=== PATIENT | male | born 1955 | race Caucasian/White ===

== ENCOUNTER 2022-03-24 13:24 | Inpatient (IN) ==
[2022-03-24] MEDS ORDERED: ULTRAM PO PRN (17:14)
[2022-03-24 17:30] VITALS: BMI 33.0
[2022-03-24] MEDS ORDERED: LR 1,000 ML IV 1,000 ML IV ONE (17:45)
[2022-03-24] MEDS: LR 1,000 ML IV 1,000 ML IV SCH (17:47)
[2022-03-24] MEDS: ZOSYN VIAL 3.375 GRAMS 3.375 G in NS 100 ML IV 100 ML IV SCH ×2 (17:51→21:01)
[2022-03-24] MEDS ORDERED: NS 250 ML IV 250 ML IV PRN (19:58)
[2022-03-24] MEDS ORDERED: NS 250 ML IV 250 ML IV ONE (19:59)
[2022-03-24] MEDS: ZOCOR TAB 20 MG PO SCH (21:00)
[2022-03-24] MEDS: REQUIP PO SCH (21:00)
[2022-03-25] MEDS: ZOSYN VIAL 3.375 GRAMS 3.375 G in NS 100 ML IV 100 ML IV SCH ×3 (05:10→21:05)
[2022-03-25] MEDS: LR 1,000 ML IV 1,000 ML IV SCH ×3 (06:02→21:05)
[2022-03-25 06:18] LABS: BASOPHILS # (AUTO) 0.1 X10^3/uL (0.0-0.1); BASOPHILS % (AUTO) 1.1 % (0.2-1.0); EOSINOPHILS # (AUTO) 0.7 x10^3/uL (0.0-0.2); EOSINOPHILS % (AUTO) 8.5 % (0.9-2.9); HEMATOCRIT 36.9 % (42.0-54.0); HEMOGLOBIN 12.9 g/dL (13.5-18.0); LYMPHOCYTES # (AUTO) 1.7 X10^3/uL (1.3-2.9); LYMPHOCYTES % (AUTO) 21.6 % (21.0-51.0); MEAN CORPUSCULAR HEMOGLOBIN 30.7 pg (27.0-34.0); MEAN CORPUSCULAR VOLUME 87.8 fL (80.0-100.0); MEAN PLATELET VOLUME 7.3 fL (7.4-11.0); MONOCYTES # (AUTO) 0.7 x10^3/uL (0.3-0.8); NEUTROPHILS # (AUTO) 4.6 x10^3/uL (2.2-4.8); NEUTROPHILS % (AUTO) 59.8 % (42.0-75.0); RED CELL DISTRIBUTION WIDTH 13.1 % (11.6-16.5); WHITE BLOOD COUNT 7.7 X10^3/uL (3.6-10.0)
[2022-03-25 06:26] LABS: ALANINE AMINOTRANSFERASE 25 Units/L (12-78); ALBUMIN 2.9 g/dL (3.4-5.0); ALKALINE PHOSPHATASE 80 Units/L (46-116); ASPARTATE AMINO TRANSFERASE 15 Units/L (15-37); BLOOD UREA NITROGEN 13 mg/dL (7-18); CARBON DIOXIDE 32.9 mmol/L (21-32); CHLORIDE 103 mmol/L (98-107); COR CA(FOR HYPOALB) 9.9 mg/dL (8.5-10.1); CREATININE 0.75 mg/dL (0.70-1.30); SODIUM 141 mmol/L (136-145); TOTAL PROTEIN 6.8 g/dL (6.4-8.2); eGFR NON BLACK RACES > 60 (>60)
--- NOTE | 2022-03-25 07:54 | VAS ---
HISTORYLeft lower extremity cellulitisSTUDYBilateral lower extremity venous Doppler evaluationTechnique: Multiple grayscale sonographic images were obtained. Color duplex Doppler evaluation was performed.COMPARISONNoneFINDINGSBilatera lly the common femoral vein, superficial femoral vein, popliteal vein, and posterior tibial veins are patent demonstrating normal flow, compression, and distal augmentation.IMPRESSIONExam negative for deep venous thrombosis bilateral lower extremitiesElectronically signed by: BOYD CALDERON (Mar 25, 2022 07:52:51)
[2022-03-25] MEDS: CYMBALTA PO SCH (08:57)
[2022-03-25] MEDS: ACCUPRIL PO SCH (08:57)
[2022-03-25] MEDS: ASPIRIN EC 81 MG PO SCH (08:57)
[2022-03-25] MEDS: LOVENOX INJ 40 MG SYR SC SCH (08:57)
[2022-03-25] MEDS: HYDROCHLOROTHIAZIDE 25 MG TAB PO SCH (08:57)
[2022-03-25] MEDS: FLOMAX PO SCH (08:57)
[2022-03-25] MEDS: PROTONIX TAB 40 MG PO SCH (08:58)
[2022-03-25] MEDS: REQUIP PO SCH ×2 (08:58→20:40)
--- NOTE | 2022-03-25 15:50 | NOTE.SOAP ---
Soap Note Note for Day of Date of Exam: 03/25/22 Subjective Data Subjective Data: HD # 1 . On IV antibiotics and the Venous u/s showed no evidence of DVT either LE. Objective Data Temperature: 98.1 F Pulse Rate: 76 Respiratory Rate: 20 Blood Pressure: 147/70 O2 Sat by Pulse Oximetry: 95 Objective Data: Less swelling and redness left leg . Both legs with chronic changes of venous insuficiency. Clinically has LE iliac vein compression bilterally. Assessment Assessment: Cellulitis left LE, bilateral LE iliac vein compression Plan Plan: IV antibiotics, Elevate left leg, Iliac venograms possible left iliac vein stenting next Tuesday
[2022-03-25] MEDS: ZOCOR TAB 20 MG PO SCH (20:40)
[2022-03-26] MEDS: ZOSYN VIAL 3.375 GRAMS 3.375 G in NS 100 ML IV 100 ML IV SCH ×3 (05:00→21:00)
[2022-03-26] MEDS: CYMBALTA PO SCH (08:42)
[2022-03-26] MEDS: FLOMAX PO SCH (08:42)
[2022-03-26] MEDS: ASPIRIN EC 81 MG PO SCH (08:42)
[2022-03-26] MEDS: HYDROCHLOROTHIAZIDE 25 MG TAB PO SCH (08:42)
[2022-03-26] MEDS: ACCUPRIL PO SCH (08:42)
[2022-03-26] MEDS: PROTONIX TAB 40 MG PO SCH (08:42)
[2022-03-26] MEDS: LOVENOX INJ 40 MG SYR SC SCH (08:43)
[2022-03-26] MEDS: REQUIP PO SCH ×2 (08:45→20:45)
[2022-03-26] MEDS: LR 1,000 ML IV 1,000 ML IV SCH ×2 (08:48→21:00)
[2022-03-26] MEDS: ZOCOR TAB 20 MG PO SCH (20:46)
--- NOTE | 2022-03-26 23:57 | NOTE.SOAP ---
Soap Note Note for Day of Date of Exam: 03/26/22 Subjective Data Subjective Data: HD # 2 , Treatment of cellulitis left leg, possible iliac vein compression. Objective Data Temperature: 98.1 F Pulse Rate: 63 Respiratory Rate: 20 Blood Pressure: 129/65 O2 Sat by Pulse Oximetry: 96 Objective Data: Less swelling and redness of the left leg Assessment Assessment: cellulits improving left leg Plan Plan: Continue IV antibiotics and elevation of left leg. Plan venograms and iliac vein IVUS on Tuesday.
[2022-03-27] MEDS: ZOSYN VIAL 3.375 GRAMS 3.375 G in NS 100 ML IV 100 ML IV SCH ×3 (05:05→21:00)
[2022-03-27] MEDS: LR 1,000 ML IV 1,000 ML IV SCH ×2 (05:08→12:02)
[2022-03-27] MEDS: REQUIP PO SCH ×2 (08:25→21:00)
[2022-03-27] MEDS: ACCUPRIL PO SCH (08:26)
[2022-03-27] MEDS: HYDROCHLOROTHIAZIDE 25 MG TAB PO SCH (08:26)
[2022-03-27] MEDS: FLOMAX PO SCH (08:26)
[2022-03-27] MEDS: ASPIRIN EC 81 MG PO SCH (08:26)
[2022-03-27] MEDS: CYMBALTA PO SCH (08:26)
[2022-03-27] MEDS: PROTONIX TAB 40 MG PO SCH (08:26)
[2022-03-27] MEDS: LOVENOX INJ 40 MG SYR SC SCH (09:38)
--- NOTE | 2022-03-27 16:38 | NOTE.SOAP ---
Soap Note Note for Day of Date of Exam: 03/27/22 Subjective Data Subjective Data: Continue to improve Objective Data Temperature: 98.6 F Pulse Rate: 64 Respiratory Rate: 20 Blood Pressure: 119/56 Objective Data: Less swelling and redness of the left leg . Both legs with stigmata of deep giancarlo ous insufficiency and /or bilateral iliac vein compression. Assessment Assessment: Cellulitis , venous insufficiency left leg improved Plan Plan: Continue elevation and IV antibiotics and plan venography , IVUS and possible stenting of left iliac vein on Tuesday03/29/2022.
[2022-03-27] MEDS: ZOCOR TAB 20 MG PO SCH (21:00)
[2022-03-28] MEDS: LR 1,000 ML IV 1,000 ML IV SCH ×3 (02:36→18:29)
[2022-03-28] MEDS: ZOSYN VIAL 3.375 GRAMS 3.375 G in NS 100 ML IV 100 ML IV SCH ×3 (06:00→21:07)
[2022-03-28] MEDS: PROTONIX TAB 40 MG PO SCH (10:08)
[2022-03-28] MEDS: ASPIRIN EC 81 MG PO SCH (10:08)
[2022-03-28] MEDS: HYDROCHLOROTHIAZIDE 25 MG TAB PO SCH (10:08)
[2022-03-28] MEDS: CYMBALTA PO SCH (10:09)
[2022-03-28] MEDS: ACCUPRIL PO SCH (10:09)
[2022-03-28] MEDS: FLOMAX PO SCH (10:10)
[2022-03-28] MEDS: REQUIP PO SCH ×2 (10:12→21:04)
[2022-03-28] MEDS: LOVENOX INJ 40 MG SYR SC SCH (10:13)
[2022-03-28] MEDS ORDERED: NS 100 ML IV 100 ML ONE (21:03)
[2022-03-28] MEDS: ZOCOR TAB 20 MG PO SCH (21:06)
[2022-03-28] MEDS ORDERED: ZOSYN VIAL 3.375 GRAMS IV ONE (21:09)
--- NOTE | 2022-03-28 23:23 | NOTE.SOAP ---
Soap Note Note for Day of Date of Exam: 03/28/22 Subjective Data Subjective Data: Continues to improve. Left leg swelling nearly resolved and left leg back to baseline of right leg. Both legs have evidence of iliac vein compression / venous insufficiency. Objective Data Temperature: 97.8 F Pulse Rate: 70 Respiratory Rate: 20 Blood Pressure: 139/73 O2 Sat by Pulse Oximetry: 95 Objective Data: As above Assessment Assessment: Cellulitis nearly resolved with IV antibiotics. Probable iliac vein compression. Plan Plan: NPO after midnight. Will plan bilateral iliac vein venograms and bilateral iliac vein IVUS and possible stenting of left iliac vein.
[2022-03-29] MEDS: LR 1,000 ML IV 1,000 ML IV SCH ×2 (03:03→06:44)
[2022-03-29] MEDS: ZOSYN VIAL 3.375 GRAMS 3.375 G in NS 100 ML IV 100 ML IV SCH ×2 (05:58→14:12)
[2022-03-29] MEDS: ASPIRIN EC 81 MG PO SCH (10:00)
[2022-03-29] MEDS: CYMBALTA PO SCH (10:01)
[2022-03-29] MEDS: FLOMAX PO SCH (10:01)
[2022-03-29] MEDS: PROTONIX TAB 40 MG PO SCH (10:01)
[2022-03-29] MEDS: LOVENOX INJ 40 MG SYR SC SCH (10:01)
[2022-03-29] MEDS: REQUIP PO SCH (10:01)
[2022-03-29] MEDS: HYDROCHLOROTHIAZIDE 25 MG TAB PO SCH (10:09)
[2022-03-29] MEDS: ACCUPRIL PO SCH (10:09)
--- NOTE | 2022-03-29 10:27 | RAD ---
HISTORYPreop vascular surgerySTUDYChest AP portableCOMPARISONNoneFINDINGSHeart size is normal. Sissy are normal. Lungs are hypoinflated but free of acute infiltrates. No pleural effusions are identified. Bony thorax is unremarkable.IMPRESSIONLungs hypoinflated but clearElectronically signed by: BOYD CALDERON (Mar 29, 2022 10:25:54)
[2022-03-29] MEDS ORDERED: LR 1,000 ML IV 1,000 ML IV ONE (11:55)
[2022-03-29] MEDS ORDERED: DIPRIVAN VIAL 20 ML ONE (11:57)
[2022-03-29] MEDS ORDERED: ANCEF VIAL 1 GRAM ONE (11:58)
[2022-03-29] MEDS ORDERED: NS 100 ML IV 100 ML ONE (11:58)
[2022-03-29] MEDS ORDERED: VERSED ONE (12:01)
[2022-03-29] MEDS ORDERED: FENTANYL VIAL INJ 100 mcg ONE (12:02)
[2022-03-29] MEDS ORDERED: MARCAINE 0.5% ONE (12:26)
[2022-03-29] MEDS ORDERED: HEPARIN SODIUM IN D5W 75,000 UNITS/1,500 ML BAG ONE (12:26)
[2022-03-29] MEDS ORDERED: KETAMINE HCL ONE (12:34)
[2022-03-29] MEDS ORDERED: XYLOCAINE 2 % (PLAIN) ONE (12:34)
[2022-03-29] MEDS ORDERED: PEPCID 20 MG VIAL ONE (12:36)
[2022-03-29] MEDS ORDERED: ZOFRAN INJ 4 MG VIAL ONE (12:36)
[2022-03-29] MEDS ORDERED: OFIRMEV IV 1000 MG VIAL 1,000 MG/100 ML VIAL IV ONE (12:49)
[2022-03-29] MEDS ORDERED: PROTAMINE SULFATE 50 MG VIAL ONE (12:57)
[2022-03-29] MEDS ORDERED: HEPARIN SODIUM INJ 5000 UNITS ONE (12:57)
[2022-03-29] MEDS ORDERED: TORADOL 30 MG VIAL ONE (13:04)
[2022-03-29 20:01] VITALS: BP 147/63
--- NOTE | 2022-03-30 08:43 | W.DIS.FURT ---
Summary of Discharge Discharge Summary of Date Date of Exam: 03/29/22 Admission Date Date of Admission: 03/24/22 Admission Diagnosis Hospital Course: This patient is a 66 year old male who presented to my office on March 24 with significant cellulitis of the left leg and stigmata of bilateral lower extremity venous insufficiency. He was admitted and placed on IV antibiotics and had elevatio of his legs. Duplex Imaging studies showed no obvious deep Venous Thrombosis but I was concerned about possible iliac vein compression as the cause of this. He markedly improved on IV antibiotics with the redness and swelling markedly decreased. He was taken to the operating Suite on March 29 where he had bilateral iliac vein venograms nd bilateral iliac vein intravascular ultrasound. 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 That will need further evaluation with CT scan. He will be discharged home on clindamycin 150 mg four times a day. He will follow up with me in one week. Vital Signs: Vital Signs (72 hours) 03/27/22 16:38 03/28/22 23:23 03/27/22 12:00 Temperature 98.6 F 97.8 F 98.1 F Pulse Rate 64 70 Pulse Rate [Brachial] Pulse Rate [Left Radial] 65 Respiratory Rate 20 20 20 Blood Pressure 119/56 139/73 Blood Pressure [Left Arm] 134/63 Blood Pressure [Right Arm] O2 Sat by Pulse Oximetry 95 94 L Oxygen Delivery Method Room Air 03/27/22 16:00 03/27/22 20:00 03/27/22 19:00 Temperature 98.6 F 98.1 F Pulse Rate Pulse Rate [Brachial] 72 Pulse Rate [Left Radial] 64 Respiratory Rate 20 20 Blood Pressure Blood Pressure [Left Arm] 119/56 Blood Pressure [Right Arm] 150/72 O2 Sat by Pulse Oximetry 97 94 L Oxygen Delivery Method Room Air Room Air Room Air 03/28/22 00:00 03/28/22 04:00 03/28/22 08:00 Temperature 97.5 F L 97.8 F 97.8 F Pulse Rate Pulse Rate [Brachial] 64 64 61 Pulse Rate [Left Radial] Respiratory Rate 18 20 18 Blood Pressure Blood Pressure [Left Arm] Blood Pressure [Right Arm] 141/70 144/73 155/74 O2 Sat by Pulse Oximetry 97 96 96 Oxygen Delivery Method Room Air Room Air 03/28/22 07:00 03/28/22 12:00 03/28/22 16:00 Temperature 98.1 F 98.5 F Pulse Rate Pulse Rate [Brachial] 70 69 Pulse Rate [Left Radial] Respiratory Rate 20 18 Blood Pressure Blood Pressure [Left Arm] Blood Pressure [Right Arm] 152/77 130/59 O2 Sat by Pulse Oximetry 94 L 95 Oxygen Delivery Method Room Air 03/28/22 19:00 03/28/22 20:00 03/29/22 00:00 Temperature 97.8 F 98.0 F Pulse Rate Pulse Rate [Brachial] 70 67 Pulse Rate [Left Radial] Respiratory Rate 20 20 Blood Pressure Blood Pressure [Left Arm] Blood Pressure [Right Arm] 139/73 139/72 O2 Sat by Pulse Oximetry 95 94 L Oxygen Delivery Method Room Air Room Air Room Air 03/29/22 04:00 03/29/22 08:00 03/29/22 07:00 Temperature 98.0 F 98.1 F Pulse Rate Pulse Rate [Brachial] 68 70 Pulse Rate [Left Radial] Respiratory Rate 20 20 Blood Pressure Blood Pressure [Left Arm] Blood Pressure [Right Arm] 141/72 144/71 O2 Sat by Pulse Oximetry 94 L 96 Oxygen Delivery Method Room Air Room Air Room Air 03/29/22 13:04 03/29/22 16:00 03/29/22 13:40 Temperature 97.8 F 97.8 F Pulse Rate Pulse Rate [Brachial] 62 62 Pulse Rate [Left Radial] Respiratory Rate 16 20 18 Blood Pressure Blood Pressure [Left Arm] Blood Pressure [Right Arm] 118/58 116/65 O2 Sat by Pulse Oximetry 96 97 Oxygen Delivery Method 03/29/22 13:55 03/29/22 14:10 03/29/22 14:25 Temperature 97.9 F Pulse Rate Pulse Rate [Brachial] 60 65 73 Pulse Rate [Left Radial] Respiratory Rate 18 18 18 Blood Pressure Blood Pressure [Left Arm] Blood Pressure [Right Arm] 103/55 119/61 117/60 O2 Sat by Pulse Oximetry 98 100 92 L Oxygen Delivery Method 03/29/22 14:40 03/29/22 15:40 03/29/22 16:40 Temperature 97.9 F 97.8 F 97.8 F Pulse Rate Pulse Rate [Brachial] 63 62 71 Pulse Rate [Left Radial] Respiratory Rate 18 20 20 Blood Pressure Blood Pressure [Left Arm] Blood Pressure [Right Arm] 127/63 118/58 129/64 O2 Sat by Pulse Oximetry 96 96 97 Oxygen Delivery Method 03/29/22 17:40 03/29/22 18:40 03/29/22 19:00 Temperature 97.9 F Pulse Rate Pulse Rate [Brachial] 76 73 Pulse Rate [Left Radial] Respiratory Rate 20 20 Blood Pressure Blood Pressure [Left Arm] Blood Pressure [Right Arm] 166/69 128/62 O2 Sat by Pulse Oximetry 95 97 Oxygen Delivery Method Room Air 03/29/22 20:00 Temperature 99.1 F Pulse Rate Pulse Rate [Brachial] 70 Pulse Rate [Left Radial] Respiratory Rate 18 Blood Pressure Blood Pressure [Left Arm] Blood Pressure [Right Arm] 147/63 O2 Sat by Pulse Oximetry 93 L Oxygen Delivery Method Labs: Laboratory Last Values WBC 7.7 X10^3/uL (3.6-10.0) 03/25/22 05:26 RBC 4.20 X10^6/uL (4.7-6.0) L 03/25/22 05:26 Hgb 12.9 g/dL (13.5-18.0) L 03/25/22 05:26 Hct 36.9 % (42.0-54.0) L 03/25/22 05:26 MCV 87.8 fL (80.0-100.0) 03/25/22 05:26 MCH 30.7 pg (27.0-34.0) 03/25/22 05:26 MCHC 35.0 g/dL (33.0-35.0) 03/25/22 05:26 RDW 13.1 % (11.6-16.5) 03/25/22 05:26 Plt Count 273 X10^3/uL (150.0-450.0) 03/25/22 05:26 MPV 7.3 fL (7.4-11.0) L 03/25/22 05:26 Neut % (Auto) 59.8 % (42.0-75.0) 03/25/22 05:26 Lymph % (Auto) 21.6 % (21.0-51.0) 03/25/22 05:26 [place] % (Auto) 9.0 % (0.0-13.0) 03/25/22 05:26 Eos % (Auto) 8.5 % (0.9-2.9) H 03/25/22 05:26 Baso % (Auto) 1.1 % (0.2-1.0) H 03/25/22 05:26 Neut # (Auto) 4.6 x10^3/uL (2.2-4.8) 03/25/22 05:26 Lymph # (Auto) 1.7 X10^3/uL (1.3-2.9) 03/25/22 05:26 [place] # (Auto) 0.7 x10^3/uL (0.3-0.8) 03/25/22 05:26 Eos # (Auto) 0.7 x10^3/uL (0.0-0.2) H 03/25/22 05:26 Baso # (Auto) 0.1 X10^3/uL (0.0-0.1) 03/25/22 05:26 Absolute Nucleated RBC 0.1 /100WBC 03/25/22 05:26 PT 13.1 SECONDS (11.8-14.3) 03/29/22 08:43 INR Target Range - 03/29/22 08:43 INR 1.02 (0.8-1.3) 03/29/22 08:43 Sodium 141 mmol/L (136-145) 03/25/22 05:26 Corrected Sodium TNP 03/25/22 05:26 Potassium 4.4 mmol/L (3.5-5.1) 03/25/22 05:26 Chloride 103 mmol/L (98-107) 03/25/22 05:26 Carbon Dioxide 32.9 mmol/L (21-32) H 03/25/22 05:26 BUN 13 mg/dL (7-18) 03/25/22 05:26 Creatinine 0.75 mg/dL (0.70-1.30) 03/25/22 05:26 Est GFR (MDRD) Af Amer > 60 (>60) 03/25/22 05:26 Est GFR (MDRD) Non-Af > 60 (>60) 03/25/22 05:26 Glucose 98 mg/dL (65-99) 03/25/22 05:26 Calcium 9.0 mg/dL (8.5-10.1) 03/25/22 05:26 Corrected Calcium 9.9 mg/dL (8.5-10.1) 03/25/22 05:26 Total Bilirubin 0.30 mg/dL (0.2-1.0) 03/25/22 05:26 AST 15 Units/L (15-37) 03/25/22 05:26 ALT 25 Units/L (12-78) 03/25/22 05:26 Alkaline Phosphatase 80 Units/L (46-116) 03/25/22 05:26 Total Protein 6.8 g/dL (6.4-8.2) 03/25/22 05:26 Albumin 2.9 g/dL (3.4-5.0) L 03/25/22 05:26 Globulin 3.9 g/dL (2.5-4.5) 03/25/22 05:26 Albumin/Globulin Ratio 0.7 Ratio (1.1-2.1) L 03/25/22 05:26 SARS-CoV-2 (PCR) Negative (NEGATIVE) 03/24/22 18:10 Reason For Visit: CELLULITIS LLE, POSSIBLE DVT Discharge Date Discharge Date: 03/29/22 Discharge Diagnosis All Active Problems (Updated 03/24/22 @ 17:14 by David Antoine) Cellulitis of left leg (Acute) Plan of Treatment: Continue with present treatment and follow up plan. Pt is to keep follow up appointment as instructed and take medications as ordered. Discharge Medications Discharge Medications: No Known Drug Allergies Allergy (Verified 03/24/22 17:41) CONTINUE taking the following medications aspirin 81 mg tablet,delayed release 81 mg PO DAILY 03/24/22 [History] duloxetine 60 mg capsule,delayed release 1 cap PO QDAY 03/24/22 [History] furosemide 20 mg tablet 1 - 2 tab PO QDAY PRN edema 03/24/22 [History] naproxen 500 mg tablet 1 tab PO BID 03/24/22 [History] pantoprazole 40 mg tablet,delayed release 1 tab PO QPM 03/24/22 [History] quinapril 20 mg-hydrochlorothiazide 25 mg tablet 1 tab PO QDAY blood pressure 03/24/22 [History] ropinirole 2 mg tablet 2 tab BID 03/24/22 [History] simvastatin 20 mg tablet 1 tab PO QDAY 03/24/22 [History] tamsulosin 0.4 mg capsule 1 cap PO QPM 03/24/22 [History] tramadol 50 mg tablet 2 tab PO QID 03/24/22 [History] triamcinolone acetonide 0.1 % topical cream 1 g topical PRN 03/24/22 [History] Clindamycin 150 mg po QID x 10 days Discharge Disposition Assessment: See hospital course above Discharge Plan Discharge Plan Hospital Course: This patient is a 66 year old male who presented to my office on March 24 with significant cellulitis of the left leg and stigmata of bilateral lower extremity venous insufficiency. He was admitted and placed on IV antibiotics and had elevatio of his legs. Duplex Imaging studies showed no obvious deep Venous Thrombosis but I was concerned about possible iliac vein compression as the cause of this. He markedly improved on IV antibiotics with the redness and swelling markedly decreased. He was taken to the operating Suite on March 29 where he had bilateral iliac vein venograms nd bilateral iliac vein intravascular ultrasound. 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 That will need further evaluation with CT scan. He will be discharged home on clindamycin 150 mg four times a day. He will follow up with me in one week. Patient Disposition: 01 HOME, SELF-CARE Condition: Stable Health Concerns: Post Hospitalization: new medications and changes needed to prevent readmission or further decline. Pt educated and given instructions on all concerns. Plan of Treatment: Continue with present treatment and follow up plan. Pt is to keep follow up appointment as instructed and take medications as ordered. Assessment: See hospital course above Prescription drug monitoring program results: PDMP reviewed and no concerns identified Prescriptions: Continued tramadol 50 mg tablet 2 tab PO QID triamcinolone acetonide 0.1 % cream 1 g TOPICAL PRN quinapril-hydrochlorothiazide 20-25 mg tablet 1 tab PO QDAY tamsulosin 0.4 mg capsule 1 cap PO QPM ropinirole 2 mg tablet 2 tab BID pantoprazole 40 mg tablet,delayed release (DR/EC) 1 tab PO QPM simvastatin 20 mg tablet 1 tab PO QDAY furosemide 20 mg tablet 1 - 2 tab PO QDAY PRN (Reason: edema) naproxen 500 mg tablet 1 tab PO BID duloxetine 60 mg capsule,delayed release(DR/EC) 1 cap PO QDAY aspirin 81 mg Tablet,Delayed Release (Dr/Ec) 81 mg PO DAILY Discontinued cephalexin 500 mg capsule 1 cap PO BID Follow ups/Referrals Follow ups/Referrals: NELLY STRATTON [Primary Care Provider] - 1 WEEK David Antoine [STAFF PHYSICIAN] - 1 WEEK Instructions Instructions: Clindamycin capsules Stand Alone Forms: Excuse From Work or School, Precautions for COVID19, [facility], Patient Portal, Social Distancing
--- NOTE | 2022-03-30 14:56 | OR.IMMED ---
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 Antoine 1 week Final Diagnosis: as above
--- NOTE | 2022-04-01 15:00 | DR.OPNOTE ---
OP NOTE Pre-Op Diagnosis: Left leg cellulitis, probable bilateral iliac vein compression Post-Op Diagnosis: No significant compression of either iliac vein, abnormally high vena cava Procedure Date Date Of Procedure: 03/29/22 Procedure: PROCEDURE : BILATERAL ILIAC VENOGRAMS, VENA CAVAGRAM. BILATERAL VENA CAVA BIFURCATION WITH THE ILIAC VEINS NARRATIVE: The patient was taken to the operative suite and placed in the supine position and both groins were prepped and draped in sterile fashion. Patient was administered intravenous sedation which was supervised by myself. Time out for the procedure obtained. Ultrasound used to identify the left greater saphenous vein and the skin overlying it infiltrated with 0. 5% Marcaine . Ultrasound used to guide puncture of the left greater saphenous vein an a 0. 012 inch guide wire placed without difficulty. Incision made over the guide wire at the skin edge and a micro sheath placed over the wire into the left greater saphenous vein and into the left femoral vein. The small wire exchanged for a 0. 035 inch Advantage glide wire and the Micro sheath exchanged for a 10 Fr vascular sheath . Ultrasound then used to identify the right greater saphenous vein and the skin overlying it infiltrated with 0. 5% Marcaine. Ultrasound used to guide puncture of the right greater saphenous vein and a 0. 012 inch guide wire placed . Incision made over the guide wire at the skin edge and a micro sheath placed over the guide wire into the right greater saphenous vein and into the right femoral vein. Small wire exchanged for a 0. 035 inch Advantage glide wire and the micro sheath exchanged for a 10 fr vascular sheath . Bilateral iliac venograms carried out showing an abnormally bifurcation with the vena cava. Bilateral intravascular ultrasound was carried out of both iliac veins showing no obvious compression with a high bifurcation of the vena cava. Being as there was no compression the procedure was ended by removing the wires. The patient had been given 5000 units of intravenous Heparin at the beginning of the case and this was reversed with 30 mg of IV Protamine . Both sheaths were removed from the groins and direct pressure held for 10 minutes. Hemostatic dressings were applied to each groin needle stick . Patient taken to same day surgery in good condition. Type of Anesthesia: Local (0.5% Marcaine) Anesthesia Comment: plus MAC Findings: abnormally high bifurcation of the inferior vena cava Type of Fluids Used:: Lactated Ringers EBL: < 50 cc Complications:: none Needle/Sponge Count:: correct Disposition/Condition: Pt. tolerated procedure without difficulty. Taken to [facility] in stable condition.
== END 2022-03-29 20:50 | disposition home or self-care (01) | DRG 603 ==
LOC: MED/SURG → OBSVTOIN 15:47
PROVIDERS: ADMIT Surgery; ATTEND Surgery
DX: Z20.822 Contact with and (suspected) exposure to COVID-19; L03.116 Cellulitis of left lower limb; I10 Essential (primary) hypertension; N40.0 Benign prostatic hyperplasia without lower urinary tract symptoms; K21.9 Gastro-esophageal reflux disease without esophagitis; M79.89 Other specified soft tissue disorders

== ENCOUNTER 2022-06-25 11:30 | Inpatient (IN) ==
[2022-06-25] MEDS ORDERED: ULTRAM PO PRN (12:58)
[2022-06-25] MEDS: LR 1,000 ML IV 1,000 ML IV SCH (15:34)
[2022-06-25] MEDS: ZOSYN VIAL 3.375 GRAMS 3.375 G in NS 100 ML IV 100 ML IV SCH ×3 (15:34→21:00)
[2022-06-25] MEDS ORDERED: FLUZONE II4 or AFLURIA II4 IM ONE (15:48)
[2022-06-25 15:49] VITALS: BMI 29.9
[2022-06-25 18:31] LABS: BASOPHILS # (AUTO) 0.1 X10^3/uL (0.0-0.1); BASOPHILS % (AUTO) 0.7 % (0.2-1.0); EOSINOPHILS # (AUTO) 0.3 x10^3/uL (0.0-0.2); EOSINOPHILS % (AUTO) 3.3 % (0.9-2.9); HEMATOCRIT 39.8 % (42.0-54.0); HEMOGLOBIN 14.1 g/dL (13.5-18.0); LYMPHOCYTES # (AUTO) 1.9 X10^3/uL (1.3-2.9); LYMPHOCYTES % (AUTO) 25.1 % (21.0-51.0); MEAN CORPUSCULAR HEMOGLOBIN 30.7 pg (27.0-34.0); MEAN CORPUSCULAR HGB CONC 35.3 g/dL (33.0-35.0); MEAN CORPUSCULAR VOLUME 86.9 fL (80.0-100.0); MEAN PLATELET VOLUME 7.3 fL (7.4-11.0); MONOCYTES # (AUTO) 0.5 x10^3/uL (0.3-0.8); MONOCYTES % (AUTO) 6.3 % (0.0-13.0); NEUTROPHILS # (AUTO) 4.9 x10^3/uL (2.2-4.8); NEUTROPHILS % (AUTO) 64.6 % (42.0-75.0); RED BLOOD COUNT 4.59 X10^6/uL (4.7-6.0); RED CELL DISTRIBUTION WIDTH 13.9 % (11.6-16.5); WHITE BLOOD COUNT 7.6 X10^3/uL (3.6-10.0)
[2022-06-25 18:43] LABS: ALANINE AMINOTRANSFERASE 34 Units/L (12-78); ALBUMIN 3.4 g/dL (3.4-5.0); ALKALINE PHOSPHATASE 78 Units/L (46-116); ASPARTATE AMINO TRANSFERASE 30 Units/L (15-37); BLOOD UREA NITROGEN 19 mg/dL (7-18); CALCIUM 8.4 mg/dL (8.5-10.1); CARBON DIOXIDE 28.3 mmol/L (21-32); CHLORIDE 103 mmol/L (98-107); COR NA(FOR HYPERGLY) 140 mmol/L (136-145); SODIUM 139 mmol/L (136-145); TOTAL PROTEIN 6.5 g/dL (6.4-8.2); eGFR NON BLACK RACES > 60 (>60)
--- NOTE | 2022-06-25 20:53 | RAD ---
HISTORYPAIN, CELLULITISSTUDYFOOT, LEFTCOMPARISONNone availableTECHNIQUELeft foot radiographs, 3 views, AP, oblique and lateral projectionsFINDINGSNo fracture or dislocations.Mild degenerative changes in the 1st MTP joint.Soft tissues are unremarkable.IMPRESSIONNo acute osseous abnormality.Electronically signed by: Anish Krishnamurthy (Jun 25, 2022 20:52:26)
--- NOTE | 2022-06-25 20:55 | RAD ---
HISTORYPAIN, CELLULITISSTUDYANKLE, LEFTCOMPARISONNone availableTECHNIQUELeft ankle radiographs, 3 views, AP, oblique and lateral projectionsFINDINGSNo fracture or dislocations.Normal joint spaces.Mild nonspecific soft tissue edema.No soft tissue gas.Normal tibiofibular interval.IMPRESSION1. No acute osseous abnormality.2. Mild nonspecific soft tissue edema.Electronically signed by: Anish Krishnamurthy (Jun 25, 2022 20:54:07)
[2022-06-25] MEDS: ZOCOR TAB 20 MG PO SCH (20:57)
[2022-06-25] MEDS: REQUIP PO SCH (20:57)
[2022-06-25] MEDS: NAPROSYN PO SCH (20:57)
[2022-06-26] MEDS: LR 1,000 ML IV 1,000 ML IV SCH ×2 (05:27→18:15)
[2022-06-26] MEDS: ZOSYN VIAL 3.375 GRAMS 3.375 G in NS 100 ML IV 100 ML IV SCH ×3 (05:27→21:07)
[2022-06-26 05:48] LABS: BASOPHILS % (AUTO) 0.7 % (0.2-1.0); EOSINOPHILS # (AUTO) 0.3 x10^3/uL (0.0-0.2); EOSINOPHILS % (AUTO) 4.4 % (0.9-2.9); HEMATOCRIT 38.3 % (42.0-54.0); HEMOGLOBIN 13.8 g/dL (13.5-18.0); LYMPHOCYTES # (AUTO) 1.7 X10^3/uL (1.3-2.9); MEAN CORPUSCULAR HEMOGLOBIN 30.7 pg (27.0-34.0); MEAN CORPUSCULAR HGB CONC 35.9 g/dL (33.0-35.0); MEAN CORPUSCULAR VOLUME 85.7 fL (80.0-100.0); MEAN PLATELET VOLUME 7.5 fL (7.4-11.0); MONOCYTES # (AUTO) 0.6 x10^3/uL (0.3-0.8); MONOCYTES % (AUTO) 8.4 % (0.0-13.0); NEUTROPHILS # (AUTO) 4.1 x10^3/uL (2.2-4.8); NEUTROPHILS % (AUTO) 61.5 % (42.0-75.0); RED BLOOD COUNT 4.47 X10^6/uL (4.7-6.0); RED CELL DISTRIBUTION WIDTH 13.8 % (11.6-16.5); WHITE BLOOD COUNT 6.6 X10^3/uL (3.6-10.0)
[2022-06-26 06:10] LABS: ALANINE AMINOTRANSFERASE 35 Units/L (12-78); ALBUMIN 3.3 g/dL (3.4-5.0); ALKALINE PHOSPHATASE 70 Units/L (46-116); ASPARTATE AMINO TRANSFERASE 24 Units/L (15-37); BLOOD UREA NITROGEN 17 mg/dL (7-18); CALCIUM 8.3 mg/dL (8.5-10.1); CHLORIDE 103 mmol/L (98-107); COR CA(FOR HYPOALB) 8.9 mg/dL (8.5-10.1); CREATININE 0.79 mg/dL (0.70-1.30); SODIUM 139 mmol/L (136-145); TOTAL PROTEIN 6.2 g/dL (6.4-8.2); eGFR NON BLACK RACES > 60 (>60)
[2022-06-26] MEDS: NAPROSYN PO SCH ×2 (08:31→20:03)
[2022-06-26] MEDS: CYMBALTA PO SCH (08:31)
[2022-06-26] MEDS: LOVENOX INJ 40 MG SYR SC SCH (08:31)
[2022-06-26] MEDS: FLOMAX PO SCH (08:32)
[2022-06-26] MEDS: ACCUPRIL PO SCH (08:32)
[2022-06-26] MEDS: PROTONIX TAB 40 MG PO SCH (08:32)
[2022-06-26] MEDS: ASPIRIN EC 81 MG PO SCH (08:32)
[2022-06-26] MEDS: REQUIP PO SCH ×2 (08:32→20:07)
[2022-06-26] MEDS: NEPHRO-VITE RX PO SCH (08:32)
[2022-06-26] MEDS: HEMOCYTE-PLUS PO SCH (08:32)
[2022-06-26] MEDS: HYDROCHLOROTHIAZIDE 25 MG TAB PO SCH (08:32)
--- NOTE | 2022-06-26 15:29 | DR.UPDATE ---
H&P UPDATE Review Yes Patient was examined?: Yes
--- NOTE | 2022-06-26 15:31 | NOTE.SOAP ---
Soap Note Note for Day of Date of Exam: 06/26/22 Subjective Data Subjective Data: Doing better Objective Data Temperature: 98 F Pulse Rate: 73 Respiratory Rate: 18 Blood Pressure: 132/59 O2 Sat by Pulse Oximetry: 94 Objective Data: Less redness left leg, still swollen, WBC=6.6 Assessment Assessment: Cellulitis left leg , venous insufficiency Plan Plan: Continue IV antibiiotics, , venogram and IVUS on Tuesday, possible stenting of the left iliac vein .
[2022-06-26] MEDS: ZOCOR TAB 20 MG PO SCH (20:04)
[2022-06-27] MEDS: LR 1,000 ML IV 1,000 ML IV SCH ×3 (04:28→17:23)
[2022-06-27] MEDS: ZOSYN VIAL 3.375 GRAMS 3.375 G in NS 100 ML IV 100 ML IV SCH ×3 (05:59→21:02)
[2022-06-27] MEDS: REQUIP PO SCH ×2 (09:00→21:01)
[2022-06-27] MEDS: ACCUPRIL PO SCH (09:00)
[2022-06-27] MEDS: FLOMAX PO SCH (09:01)
[2022-06-27] MEDS: HEMOCYTE-PLUS PO SCH (09:02)
[2022-06-27] MEDS: NAPROSYN PO SCH ×2 (09:02→21:02)
[2022-06-27] MEDS: PROTONIX TAB 40 MG PO SCH (09:02)
[2022-06-27] MEDS: LOVENOX INJ 40 MG SYR SC SCH (09:02)
[2022-06-27] MEDS: HYDROCHLOROTHIAZIDE 25 MG TAB PO SCH (09:02)
[2022-06-27] MEDS: ASPIRIN EC 81 MG PO SCH (09:02)
[2022-06-27] MEDS: CYMBALTA PO SCH (09:02)
[2022-06-27] MEDS: NEPHRO-VITE RX PO SCH (09:06)
--- NOTE | 2022-06-27 14:57 | NOTE.SOAP ---
Soap Note Note for Day of Date of Exam: 06/27/22 Subjective Data Subjective Data: Redness nearly resolved left leg. Objective Data Temperature: 97.8 F Pulse Rate: 57 Respiratory Rate: 18 Blood Pressure: 139/65 O2 Sat by Pulse Oximetry: 94 Objective Data: Redness less left leg. Assessment Assessment: Cellulitis left leg. Venous insufficiency left leg, possible left iliac vein compression.
[2022-06-27] MEDS: ZOCOR TAB 20 MG PO SCH (21:02)
[2022-06-28] MEDS: ZOSYN VIAL 3.375 GRAMS 3.375 G in NS 100 ML IV 100 ML IV SCH ×2 (05:01→14:22)
[2022-06-28] MEDS: LR 1,000 ML IV 1,000 ML IV SCH (05:12)
[2022-06-28 05:17] LABS: BASOPHILS # (AUTO) 0.1 X10^3/uL (0.0-0.1); BASOPHILS % (AUTO) 1.1 % (0.2-1.0); EOSINOPHILS # (AUTO) 0.4 x10^3/uL (0.0-0.2); EOSINOPHILS % (AUTO) 4.6 % (0.9-2.9); HEMATOCRIT 39.7 % (42.0-54.0); HEMOGLOBIN 13.7 g/dL (13.5-18.0); LYMPHOCYTES % (AUTO) 25.7 % (21.0-51.0); MEAN CORPUSCULAR HGB CONC 34.5 g/dL (33.0-35.0); MEAN CORPUSCULAR VOLUME 86.9 fL (80.0-100.0); MEAN PLATELET VOLUME 7.3 fL (7.4-11.0); MONOCYTES # (AUTO) 0.6 x10^3/uL (0.3-0.8); MONOCYTES % (AUTO) 7.3 % (0.0-13.0); NEUTROPHILS # (AUTO) 4.7 x10^3/uL (2.2-4.8); NEUTROPHILS % (AUTO) 61.3 % (42.0-75.0); RED BLOOD COUNT 4.57 X10^6/uL (4.7-6.0); RED CELL DISTRIBUTION WIDTH 13.9 % (11.6-16.5); WHITE BLOOD COUNT 7.6 X10^3/uL (3.6-10.0)
[2022-06-28 05:35] LABS: ALANINE AMINOTRANSFERASE 30 Units/L (12-78); ALBUMIN 3.3 g/dL (3.4-5.0); ALKALINE PHOSPHATASE 69 Units/L (46-116); ASPARTATE AMINO TRANSFERASE 18 Units/L (15-37); BLOOD UREA NITROGEN 12 mg/dL (7-18); CALCIUM 8.3 mg/dL (8.5-10.1); CARBON DIOXIDE 29.4 mmol/L (21-32); CHLORIDE 101 mmol/L (98-107); COR CA(FOR HYPOALB) 8.9 mg/dL (8.5-10.1); CREATININE 0.82 mg/dL (0.70-1.30); SODIUM 138 mmol/L (136-145); TOTAL PROTEIN 6.4 g/dL (6.4-8.2); eGFR NON BLACK RACES > 60 (>60)
[2022-06-28] MEDS ORDERED: LR 1,000 ML IV 1,000 ML IV ONE (08:38)
[2022-06-28] MEDS ORDERED: MARCAINE 0.5% ONE (09:18)
[2022-06-28] MEDS ORDERED: HEPARIN SODIUM IN D5W 75,000 UNITS/1,500 ML BAG ONE (09:18)
[2022-06-28] MEDS ORDERED: PEPCID 20 MG VIAL ONE (09:24)
[2022-06-28] MEDS ORDERED: ROBINUL ONE (09:24)
[2022-06-28] MEDS ORDERED: ZOFRAN INJ 4 MG VIAL ONE (09:24)
[2022-06-28] MEDS ORDERED: DIPRIVAN VIAL 20 ML ONE ×4 (09:25→10:35)
[2022-06-28] MEDS ORDERED: VERSED ONE (09:25)
[2022-06-28] MEDS ORDERED: HEPARIN SODIUM INJ 5000 UNITS ONE (09:25)
[2022-06-28] MEDS ORDERED: XYLOCAINE 2 % (PLAIN) ONE (09:25)
[2022-06-28] MEDS ORDERED: FENTANYL VIAL INJ 100 mcg ONE (09:28)
[2022-06-28] MEDS ORDERED: KETAMINE HCL ONE (09:36)
[2022-06-28] MEDS ORDERED: PRECEDEX INJ VIAL IVP ONE (09:36)
[2022-06-28] MEDS ORDERED: EPHEDRINE SULFATE INJ ONE (10:15)
[2022-06-28] MEDS ORDERED: TORADOL 30 MG VIAL ONE (10:37)
[2022-06-28] MEDS ORDERED: PROTAMINE SULFATE 50 MG VIAL ONE ×3 (10:37→10:50)
--- NOTE | 2022-06-28 10:54 | OR.IMMED ---
IMMEDIATE POST-OP NOTE Immediate Post-Op Note Pre-Op Diagnosis: left leg swelling, possible deep vein compression Post-Op Diagnosis: 65 % compression left popliteal vein. Procedure: left leg deep venogram vis distal left posterior tibial vein stick, IVUS left leg vein to vena cava, balloon dilatation left popliteal vein Description of Procedure: see operative note Surgeon/Core Drilling Supervisor: Arash Findings: 65 % compression of the left popliteal vein Estimated Blood Loss: < 50 cc Complications: none Progress Notes: To Floor, probably discharge home later today on po antibiotics and po anticoagulation. Final Diagnosis: above
[2022-06-28] MEDS: LOVENOX INJ 40 MG SYR SC SCH (13:07)
[2022-06-28] MEDS: CYMBALTA PO SCH (13:07)
[2022-06-28] MEDS: ACCUPRIL PO SCH (13:07)
[2022-06-28] MEDS: PROTONIX TAB 40 MG PO SCH (13:08)
[2022-06-28] MEDS: HEMOCYTE-PLUS PO SCH (13:08)
[2022-06-28] MEDS: REQUIP PO SCH (13:08)
[2022-06-28] MEDS: NAPROSYN PO SCH (13:08)
[2022-06-28] MEDS: HYDROCHLOROTHIAZIDE 25 MG TAB PO SCH (13:08)
[2022-06-28] MEDS: ASPIRIN EC 81 MG PO SCH (13:08)
[2022-06-28] MEDS: FLOMAX PO SCH (13:09)
[2022-06-28] MEDS: NEPHRO-VITE RX PO SCH (13:09)
[2022-06-28 16:56] VITALS: BP 121/64
--- NOTE | 2022-06-28 17:59 | W.DIS.FURT ---
Summary of Discharge Discharge Summary of Date Date of Exam: 06/28/22 Admission Date Date of Admission: 06/25/22 Admission Diagnosis Hospital Course: 66 yo male with history of cellulitis of the left leg believed to be secondary to venous insufficiency. Had venograms of both iliac veins and IVUS showing no iliac vein compression and a high bifurcation of the iliacveins. Admitted this time with recurrent cellulitis of the left leg. Treated with IV antibiotics and had venogram and IVUS from the left ankle showing 65 % compression of the left popliteal vein. He underwent balloon dilitation of this. He will be discharged home on Clindamycin , 150 mg po QID and Xarelto 2.5 mg BID to be treated for 3 months . F/u 1 week. Vital Signs: Vital Signs (72 hours) 06/26/22 15:31 06/27/22 14:57 06/25/22 19:00 Temperature 98 F 97.8 F Pulse Rate 73 57 L Pulse Rate [Right Radial] Respiratory Rate 18 18 Blood Pressure 132/59 139/65 Blood Pressure [Right Arm] O2 Sat by Pulse Oximetry 94 L 94 L Oxygen Delivery Method Room Air 06/25/22 20:00 06/26/22 00:00 06/26/22 03:59 Temperature 98.3 F 98.1 F 97.6 F Pulse Rate Pulse Rate [Right Radial] 78 77 59 L Respiratory Rate 20 20 18 Blood Pressure Blood Pressure [Right Arm] 121/58 115/66 108/58 O2 Sat by Pulse Oximetry 93 L 94 L 96 Oxygen Delivery Method Room Air Room Air Room Air 06/26/22 07:00 06/26/22 08:00 06/26/22 12:00 Temperature 98.1 F 98.0 F Pulse Rate Pulse Rate [Right Radial] 66 73 Respiratory Rate 18 18 Blood Pressure Blood Pressure [Right Arm] 122/64 132/59 O2 Sat by Pulse Oximetry 95 94 L Oxygen Delivery Method Room Air Room Air Room Air 06/26/22 16:00 06/26/22 19:00 06/26/22 20:00 Temperature 98.2 F 98.1 F Pulse Rate Pulse Rate [Right Radial] 80 75 Respiratory Rate 18 20 Blood Pressure Blood Pressure [Right Arm] 131/62 128/57 O2 Sat by Pulse Oximetry 95 93 L Oxygen Delivery Method Room Air Room Air Room Air 06/27/22 00:00 06/27/22 04:00 06/27/22 08:00 Temperature 97.9 F 97.8 F 98.3 F Pulse Rate Pulse Rate [Right Radial] 74 80 67 Respiratory Rate 20 20 18 Blood Pressure Blood Pressure [Right Arm] 145/63 120/65 144/67 O2 Sat by Pulse Oximetry 95 95 96 Oxygen Delivery Method Room Air Room Air Room Air 06/27/22 07:00 06/27/22 12:00 06/27/22 15:40 Temperature 97.8 F 98.5 F Pulse Rate Pulse Rate [Right Radial] 57 L 70 Respiratory Rate 18 20 Blood Pressure Blood Pressure [Right Arm] 139/65 123/61 O2 Sat by Pulse Oximetry 94 L 94 L Oxygen Delivery Method Room Air Room Air Room Air 06/27/22 19:29 06/27/22 19:00 06/27/22 23:55 Temperature 98.8 F 98.2 F Pulse Rate Pulse Rate [Right Radial] 84 77 Respiratory Rate 18 20 Blood Pressure Blood Pressure [Right Arm] 127/66 153/74 O2 Sat by Pulse Oximetry 96 95 Oxygen Delivery Method Room Air 06/28/22 04:00 06/28/22 08:35 06/28/22 07:00 Temperature 98.1 F 97.0 F L Pulse Rate 65 Pulse Rate [Right Radial] 67 Respiratory Rate 20 18 Blood Pressure 138/77 Blood Pressure [Right Arm] 114/55 O2 Sat by Pulse Oximetry 95 95 Oxygen Delivery Method Room Air Room Air Room Air 06/28/22 08:00 06/28/22 10:37 06/28/22 10:51 Temperature 97.7 F 97.5 F L Pulse Rate 90 Pulse Rate [Right Radial] 69 Respiratory Rate 20 18 18 Blood Pressure 139/74 Blood Pressure [Right Arm] 132/76 O2 Sat by Pulse Oximetry 97 97 Oxygen Delivery Method Room Air Aerosol Face Tent 06/28/22 11:16 06/28/22 10:56 06/28/22 11:01 Temperature Pulse Rate 80 88 96 H Pulse Rate [Right Radial] Respiratory Rate 18 18 18 Blood Pressure 140/70 136/72 131/76 Blood Pressure [Right Arm] O2 Sat by Pulse Oximetry 98 98 98 Oxygen Delivery Method Nasal Cannula Aerosol Face Tent Nasal Cannula 06/28/22 11:06 06/28/22 11:11 06/28/22 11:27 Temperature 96.5 F L Pulse Rate 84 90 Pulse Rate [Right Radial] 88 Respiratory Rate 18 18 18 Blood Pressure 145/76 141/78 Blood Pressure [Right Arm] 110/64 O2 Sat by Pulse Oximetry 98 95 96 Oxygen Delivery Method Nasal Cannula Nasal Cannula Room Air 06/28/22 11:42 06/28/22 11:57 06/28/22 12:12 Temperature 97.7 F 97.7 F 97.8 F Pulse Rate Pulse Rate [Right Radial] 82 79 68 Respiratory Rate 20 20 20 Blood Pressure Blood Pressure [Right Arm] 117/68 119/59 117/64 O2 Sat by Pulse Oximetry 93 L 97 94 L Oxygen Delivery Method Room Air Room Air Room Air 06/28/22 12:27 06/28/22 13:27 06/28/22 14:27 Temperature 97.8 F 98.2 F 98.2 F Pulse Rate Pulse Rate [Right Radial] 72 94 H 84 Respiratory Rate 20 20 20 Blood Pressure Blood Pressure [Right Arm] 120/65 144/67 143/75 O2 Sat by Pulse Oximetry 96 97 96 Oxygen Delivery Method Room Air Room Air Room Air 06/28/22 15:27 06/28/22 16:27 Temperature 98.2 F 98.4 F Pulse Rate Pulse Rate [Right Radial] 91 H 92 H Respiratory Rate 20 20 Blood Pressure Blood Pressure [Right Arm] 115/58 121/64 O2 Sat by Pulse Oximetry 91 L 96 Oxygen Delivery Method Room Air Room Air Labs: Laboratory Last Values WBC 7.6 X10^3/uL (3.6-10.0) 06/28/22 04:55 RBC 4.57 X10^6/uL (4.7-6.0) L 06/28/22 04:55 Hgb 13.7 g/dL (13.5-18.0) 06/28/22 04:55 Hct 39.7 % (42.0-54.0) L 06/28/22 04:55 MCV 86.9 fL (80.0-100.0) 06/28/22 04:55 MCH 30.0 pg (27.0-34.0) 06/28/22 04:55 MCHC 34.5 g/dL (33.0-35.0) 06/28/22 04:55 RDW 13.9 % (11.6-16.5) 06/28/22 04:55 Plt Count 249 X10^3/uL (150.0-450.0) 06/28/22 04:55 MPV 7.3 fL (7.4-11.0) L 06/28/22 04:55 Neut % (Auto) 61.3 % (42.0-75.0) 06/28/22 04:55 Lymph % (Auto) 25.7 % (21.0-51.0) 06/28/22 04:55 [place] % (Auto) 7.3 % (0.0-13.0) 06/28/22 04:55 Eos % (Auto) 4.6 % (0.9-2.9) H 06/28/22 04:55 Baso % (Auto) 1.1 % (0.2-1.0) H 06/28/22 04:55 Neut # (Auto) 4.7 x10^3/uL (2.2-4.8) 06/28/22 04:55 Lymph # (Auto) 2.0 X10^3/uL (1.3-2.9) 06/28/22 04:55 [place] # (Auto) 0.6 x10^3/uL (0.3-0.8) 06/28/22 04:55 Eos # (Auto) 0.4 x10^3/uL (0.0-0.2) H 06/28/22 04:55 Baso # (Auto) 0.1 X10^3/uL (0.0-0.1) 06/28/22 04:55 Absolute Nucleated RBC 0.1 /100WBC 06/28/22 04:55 Sodium 138 mmol/L (136-145) 06/28/22 04:55 Corrected Sodium TNP 06/28/22 04:55 Potassium 3.8 mmol/L (3.5-5.1) 06/28/22 04:55 Chloride 101 mmol/L (98-107) 06/28/22 04:55 Carbon Dioxide 29.4 mmol/L (21-32) 06/28/22 04:55 BUN 12 mg/dL (7-18) 06/28/22 04:55 Creatinine 0.82 mg/dL (0.70-1.30) 06/28/22 04:55 Est GFR (MDRD) Af Amer > 60 (>60) 06/28/22 04:55 Est GFR (MDRD) Non-Af > 60 (>60) 06/28/22 04:55 Glucose 109 mg/dL (65-99) H 06/28/22 04:55 Calcium 8.3 mg/dL (8.5-10.1) L 06/28/22 04:55 Corrected Calcium 8.9 mg/dL (8.5-10.1) 06/28/22 04:55 Total Bilirubin 0.30 mg/dL (0.2-1.0) 06/28/22 04:55 AST 18 Units/L (15-37) 06/28/22 04:55 ALT 30 Units/L (12-78) 06/28/22 04:55 Alkaline Phosphatase 69 Units/L (46-116) 06/28/22 04:55 Total Protein 6.4 g/dL (6.4-8.2) 06/28/22 04:55 Albumin 3.3 g/dL (3.4-5.0) L 06/28/22 04:55 Globulin 3.1 g/dL (2.5-4.5) 06/28/22 04:55 Albumin/Globulin Ratio 1.1 Ratio (1.1-2.1) 06/28/22 04:55 Reason For Visit: LLE CELLULITIS Discharge Date Discharge Date: 06/28/22 Discharge Diagnosis All Active Problems (Updated 06/28/22 @ 17:59 by David Antoine) Venous insufficiency of left leg (Acute) Cellulitis of left leg (Acute) Plan of Treatment: Continue with present treatment and follow up plan. Pt is to keep follow up appointment as instructed and take medications as ordered. Discharge Medications Discharge Medications: No Known Drug Allergies Allergy (Verified 03/24/22 17:41) New Prescriptions rivaroxaban 2.5 mg tablet (Xarelto) 2.5 mg PO BID #180 tabs 06/28/22 [Rx] Discharge Disposition Assessment: see hospital course above Discharge Plan Discharge Plan Hospital Course: 66 yo male with history of cellulitis of the left leg believed to be secondary to venous insufficiency. Had venograms of both iliac veins and IVUS showing no iliac vein compression and a high bifurcation of the iliacveins. Admitted this time with recurrent cellulitis of the left leg. Treated with IV antibiotics and had venogram and IVUS from the left ankle showing 65 % compression of the left popliteal vein. He underwent balloon dilitation of this. He will be discharged home on Clindamycin , 150 mg po QID and Xarelto 2.5 mg BID to be treated for 3 months . F/u 1 week. Patient Disposition: 01 HOME, SELF-CARE Condition: Stable Health Concerns: Post Hospitalization: new medications and changes needed to prevent readmission or further decline. Pt educated and given instructions on all concerns. Care Plan Goals: see hospital couse above Plan of Treatment: Continue with present treatment and follow up plan. Pt is to keep follow up appointment as instructed and take medications as ordered. Assessment: see hospital course above Prescription drug monitoring program results: PDMP reviewed and no concerns identified Prescriptions: New Xarelto 2.5 mg tablet 2.5 mg PO BID Qty: 180 0RF Continued tramadol 50 mg tablet 2 tab PO QID PRN Rx Instructions: PT RARELY TAKES PER HIS triamcinolone acetonide 0.1 % cream 1 g TOPICAL PRN quinapril-hydrochlorothiazide 20-25 mg tablet 1 tab PO QDAY tamsulosin 0.4 mg capsule 1 cap PO QPM ropinirole 2 mg tablet 2 tab BID pantoprazole 40 mg tablet,delayed release (DR/EC) 1 tab PO QPM simvastatin 20 mg tablet 1 tab PO QDAY furosemide 20 mg tablet 1 - 2 tab PO QDAY PRN (Reason: edema) naproxen 500 mg tablet 1 tab PO BID duloxetine 60 mg capsule,delayed release(DR/EC) 1 cap PO QDAY aspirin 81 mg Tablet,Delayed Release (Dr/Ec) 81 mg PO DAILY Rx Instructions: PT TAKES EVERY OTHER DAY DUE TO BLEEDING Follow ups/Referrals Follow ups/Referrals: NELLY STRATTON [Primary Care Provider] - 1 WEEK Instructions Stand Alone Forms: Excuse From Work or School, Precautions for COVID19, [facility], Patient Portal, Social Distancing
--- NOTE | 2022-07-01 07:52 | DR.OPNOTE ---
OP NOTE Pre-Op Diagnosis: recurrent cellulitis left leg, venous insufficiency, known IVC high bifurc Post-Op Diagnosis: severe compression/ stenosis of the left popliteal vein Procedure Date Date Of Procedure: 06/28/22 Procedure: PROCEDURE: LEFT LEG VENOGRAM, VENOGRAM INFERIOR VENA CAVA, ANGIOPLASTY LEFT POPLITEAL VEIN NARRATIVE : The patient was taken to the operative suite and placed in the Supine position. The entire left leg prepped and draped in sterile fashion. The patient was given intravenous sedation which was supervised by myself. Time out for the procedure obtained . Ultrasound used to identify the left posterior tibial vein at the ankle and the skin overlying it infiltrated with 0. 5% Marcaine . Ultrasound used to guide puncture of the left posterior tibial vein at the ankle and placed a 0. [address]. Incision made over the guide wire at the skin edge with a number 11 knife blade and a micro sheath placed over the guide wire into the left posterior tibial vein . Venogram confirmed that I was indeed in the posterior tibial vein. Venogram of the left leg carried out with [place] catheter over a guidewire sequentially showing evidence of possible compression of the left popliteal vein. Venogram of the iliac vein and vena cava appear to be normal as before. The micro sheath exchanged for a for 5 FR vascular sheath and the intravascular ultrasound placed over the guide wire showing 65% compression of the entire left popliteal vein. Patient has had a history of left knee replacement. Therefore this area was ballooned dilated with a 12 mm [employer] [place] balloon done sequentially dilating the popliteal vein. Repeat intravascular ultrasound showed some improvement. The patient had been given 5000 units of heparin the beginning of the case. At the end of the case the patient was s given 30 mg of intravenous Protamine. The sheath and the wire removed from the posterior tibial vein . The patient was taken to same day surgery in good condition. Type of Anesthesia: Local (0.5% Marcaine) Anesthesia Comment: plus MAC Findings: 65 % compression of the left popliteal vein Type of Fluids Used:: Lactated Ringers EBL: < 50 cc Complications:: none Disposition/Condition: Pt. tolerated procedure without difficulty. Taken to [facility] in stable condition.
== END 2022-06-28 18:33 | disposition home or self-care (01) | DRG 983 ==
LOC: MED/SURG 14:40
PROVIDERS: ADMIT Surgery; ATTEND Surgery
DX: I87.2 Venous insufficiency (chronic) (peripheral); R60.0 Localized edema; L03.116 Cellulitis of left lower limb; I10 Essential (primary) hypertension; K21.9 Gastro-esophageal reflux disease without esophagitis